=== PATIENT | male | born 1960 | race Caucasian/White ===

== ENCOUNTER 2017-06-25 13:41 | Emergency (ER) | payer BC ==
--- NOTE | 2017-06-26 18:42 | ER ---
DATE SEEN: 06/25/2017 TIME SEEN: The patient was seen at 1400 hours. HISTORY OF PRESENT ILLNESS: This single, nonsmoking, nondiabetic man who lives alone, complains of 3-day onset of tingling with mild headache. The tingling comes and goes. He notes when he picks up tools, his hands feel hot, and the bottom of his feet feel hot. The patient works at [employer] and their job is to wash, clean, and dry soy beans for planting. This season is very slow at this point. He works as an electrical manufacturing technician and is not exposed to any chemicals. He notes today his tingling in his legs is a little bit worse. It involves his calves and the bottom of his feet feel hotter than usual. He has not been exposed to any unusual chemicals or drunk moonshine. He had alcohol a few drinks 06/22/2017, but a minimal amount of beer, one beer. No history of trauma to his back. No history of dental problems or skin diseases or abdominal pain, nausea, vomiting, diarrhea, tachycardia, hypertension, or paralysis. The patient is a nonsmoker. No new heating system. No carbon monoxide poisoning or exposure. No use of street drugs. No recent medications. No family history of carcinoid syndrome or thyroid disease. The patient does not feel he has had any thyroid problems. On reviewing his diet, it is apparent that he ate 1 pound of shrimp on Saturday. Since then, he has felt these symptoms. PAST MEDICAL HISTORY: No diabetes, heart disease, high blood pressure, asthma, or other serious illnesses. MEDICATIONS: Ibuprofen 800 mg several times a day, more recently. REVIEW OF SYSTEMS: No other serious illnesses. HEENT, cardiorespiratory, GI, , musculoskeletal, neuro, all negative except for noted above. PHYSICAL EXAMINATION: VITAL SIGNS: Blood pressure 179/99 on arrival, now is 151/96 and 148/93. Heart rate 80, 93 on arrival, it is now 76, and respirations 17, oxygen saturation 97%, temperature is 36.7 degrees centigrade. The patient is 99.7 kg with a BMI of 32.5 kg/m2. GENERAL: Pleasant fellow. CONSTITUTIONAL: Well dressed, appropriate conversation. SKIN: He has mild facial flushing, has had slight flushing of the skin on his hands and his legs. There is slight erythema of hands and legs. HEENT: PERRLA intact. Pharynx without abnormality. Gag is normal. No pharyngeal erythema. NECK: No cervical adenopathy. No bruits in the neck. No masses in the neck. No tracheal tug. No tracheal deviation. LUNGS: Clear without rales, rhonchi, or wheezes. HEART: S1, S2. No murmur. No chest wall tenderness. No thoracic spine or paraspinal muscle discomfort. ABDOMEN: Soft. No guarding. No abdominal discomfort. No masses. EXTREMITIES: Without abnormality. Trace of erythema upper and lower extremities and more notable on the face and hands. ASSESSMENT: 1. The etiology for the patient's flushing and sensation of warmth to his feet and his hands is probably secondary to shrimp ingestion. Multiple other diagnoses are considered and have been ruled out: Scombroid ingestion, serotonin syndrome, histamine release and mastocytosis, carcinoid syndrome, food ingestion, (very likely secondary to shrimp ingestion), allergic reaction, carbon monoxide exposure. The patient is advised we are not planning to treat his rash or his flushing. That should gradually progressively get better. 2. In the future, he should have a re-challenge with the shrimp and see if he has the same symptoms, this would help ascertain the diagnosis. 3. He has mild elevation of blood pressure. He has had 6 different blood pressures obtained. Follow up with his doctor next week to verify or validate if he has hypertension. Perhaps he is going to need antihypertensive. I did not start him on antihypertensives today. It is not felt that he had an allergy-mediated process except for it could be indirectly an allergy related to the food he has eaten. I did not provide histamines for him. I would like to see how he does without antihistamines. DIAGNOSES: 1. Shrimp-mediated allergic reaction with flushing and dysesthesia in hands and feet. 2. Probable hypertension. 3. Overweight. /[id number] ARCENIO/MODL
== END 2017-06-25 15:15 | disposition home or self-care (01) ==
LOC: FB.ED 13:41
DX: T78.1XXA Other adverse food reactions, not elsewhere classified, initial encounter (principal); R23.2 Flushing; R20.8 Other disturbances of skin sensation
CPT/HCPCS: 36415; 80053; 82150; 84443; 85025; 99284

== ENCOUNTER 2021-11-01 07:56 | Day surgery (SDC) | payer BC ==
[~2021-11-01 07:56] MED LIST: Lactated Ringers 1,000 ML IV SCH; Sodium Chloride 0.9% 10 ML Syringe FLUSH PRN
[2021-11-01] MEDS ORDERED: Midazolam 1 MG/ML 2 ML SDV IV ONE (07:57)
[2021-11-01] MEDS ORDERED: Labetalol 100 MG/20 ML MDV IV ONE (07:57)
[2021-11-01] MEDS ORDERED: Propofol 200 MG/20 ML SDV IV ONE (07:57)
== END 2021-11-01 09:42 | disposition home or self-care (01) ==
LOC: FB.SDS 07:56
PROVIDERS: ATTEND Surgery
DX: Z12.11 Encounter for screening for malignant neoplasm of colon (principal); K57.30 Diverticulosis of large intestine without perforation or abscess without bleeding; E66.9 Obesity, unspecified; Z80.0 Family history of malignant neoplasm of digestive organs; Z79.899 Other long term (current) drug therapy; Z88.1 Allergy status to other antibiotic agents; Z98.890 Other specified postprocedural states; Z68.32 Body mass index [BMI] 32.0-32.9, adult
CPT/HCPCS: 00811; 45378; J2250; J2704; J3490; J7120